=== PATIENT | male | born 1985 | race African-American/Black ===

== ENCOUNTER 2017-12-17 14:41 | Emergency (ER) | payer SELFPAY ==
[2017-12-17 15:49] LABS: Bilirubin Negative (Negative); Blood, Urine Negative (Negative); Glucose, Urine (Dipstick) Negative (Negative); Leukocyte Negative (Negative); Nitrite Negative (Negative); Protein, Urine (Dipstick) Negative (Neg-Trace); Specific Gravity, Urine 1.025 (1.005-1.030); Urobilinogen 0.2 mg/dL (0.2-1.0)
[2017-12-17 15:52] LABS: Clarity Clear (Clear)
[2017-12-17] MEDS ORDERED: Lidocaine 1% PF 5 ML VIAL ONE (16:09)
[2017-12-17] MEDS ORDERED: Azithromycin 250 MG TAB ONE (16:09)
[2017-12-17] MEDS ORDERED: cefTRIAXone\\ROCEPHIN 250 MG VIAL ONE (16:10)
[2017-12-18 22:02] LABS: Chlamydia by PCR Not Detected (NotDetected); GC by PCR Not Detected (NotDetected)
== END 2017-12-17 16:46 | disposition home or self-care (01) ==
LOC: ERS 14:41
DX: N34.2 Other urethritis (principal); H10.9 Unspecified conjunctivitis; Z71.6 Tobacco abuse counseling; F17.210 Nicotine dependence, cigarettes, uncomplicated
CPT/HCPCS: 81003; 87086; 87491; 87591; 96372; 99406; J0696; J2001

== ENCOUNTER 2017-12-20 11:05 | Emergency (ER) | payer SELFPAY ==
[2017-12-20] MEDS ORDERED: Proparacaine 0.5% Opth 15 ML BOT ONE (11:35)
[2017-12-20] MEDS ORDERED: Fluorescein Opthalmic Strip ONE (11:35)
== END 2017-12-20 12:47 | disposition home or self-care (01) ==
LOC: ERS 11:05
DX: H11.421 Conjunctival edema, right eye (principal); F17.210 Nicotine dependence, cigarettes, uncomplicated
CPT/HCPCS: 99406

== ENCOUNTER 2018-02-07 12:53 | Emergency (ER) | payer SELFPAY | END 2018-02-07 13:34 | disposition home or self-care (01) | LOC: ERS 12:53 | DX: S46.812A Strain of other muscles, fascia and tendons at shoulder and upper arm level, left arm, initial encounter (principal); S50.811A Abrasion of right forearm, initial encounter; S80.12XA Contusion of left lower leg, initial encounter; V89.2XXA Person injured in unspecified motor-vehicle accident, traffic, initial encounter; F17.210 Nicotine dependence, cigarettes, uncomplicated; W22.11XA Striking against or struck by driver side automobile airbag, initial encounter | CPT/HCPCS: 99283 ==

== ENCOUNTER 2018-02-10 10:39 | Emergency (ER) | payer SELFPAY | END 2018-02-10 11:21 | disposition home or self-care (01) | LOC: ERS 10:39 | DX: S29.012A Strain of muscle and tendon of back wall of thorax, initial encounter (principal); F17.210 Nicotine dependence, cigarettes, uncomplicated; Z79.899 Other long term (current) drug therapy; V49.9XXA Car occupant (driver) (passenger) injured in unspecified traffic accident, initial encounter | CPT/HCPCS: 99283 ==

== ENCOUNTER 2018-03-07 16:39 | Emergency (ER) | payer SELFPAY ==
[2018-03-07] MEDS ORDERED: Azithromycin 250 MG TAB ONE (17:05)
[2018-03-07 17:34] LABS: Bilirubin Negative (Negative); Blood, Urine Negative (Negative); Clarity CLEAR (Clear); Glucose, Urine (Dipstick) Negative (Negative); Leukocyte Moderate (Negative); Nitrite Negative (Negative); Protein, Urine (Dipstick) Trace mg/dL (Neg-Trace); Specific Gravity, Urine 1.025 (1.002-1.036); pH, Urine 6.5 (5.0-9.0)
[2018-03-07 17:35] LABS: Bacteria/HPF None Seen HPF (None Seen); Hyaline Casts/LPF 0-3 HYALINE CAST LPF (0-3 Hyaline); Pathc Cast-AUWi Flag 0.14 (0-2.49); RBC/HPF 0-3 HPF (0-3); Squamous Epithelial None Seen HPF (0-3)
[2018-03-10 18:54] LABS: Chlamydia by PCR DETECTED (NotDetected); GC by PCR DETECTED (NotDetected)
== END 2018-03-07 17:57 | disposition home or self-care (01) ==
LOC: ERS 16:39
DX: N34.1 Nonspecific urethritis (principal); F17.210 Nicotine dependence, cigarettes, uncomplicated
CPT/HCPCS: 81003; 81015; 87086; 87491; 87591; 99283

== ENCOUNTER → 2018-03-11 | Day surgery (SDC) | payer SELFPAY ==
[~2018-03-11] MED LIST: Lidocaine 1% PF 5 ML VIAL ONE; cefTRIAXone\\ROCEPHIN 250 MG VIAL ONE
== END ==
LOC: ER/OP 15:32
DX: Z23 Encounter for immunization (principal); A64 Unspecified sexually transmitted disease
CPT/HCPCS: 96372; J0696; J2001

== ENCOUNTER 2019-12-21 13:14 | Emergency (ER) | payer SELFPAY | END 2019-12-21 14:02 | disposition home or self-care (01) | LOC: ERS 13:14 | DX: Z20.6 Contact with and (suspected) exposure to human immunodeficiency virus [HIV] (principal); F17.210 Nicotine dependence, cigarettes, uncomplicated | CPT/HCPCS: 99283 ==